=== PATIENT | male | born 1995 | race Caucasian/White ===

== ENCOUNTER 2023-02-22 01:06 | Day surgery (SDC) | payer OTHER, SELFPAY ==
[2023-02-18 16:12] VITALS: BMI 27.1
--- NOTE | 2023-02-18 16:24 | PC.NURSE ---
Report to the Outpatient Waiting Room, entrance under the green pavilion located off [facility], at time 0600 on date _02/22/23. Planned Procedure Time: 0730_. Time changes happen often and if your time is changed the preop area will call you the afternoon before. - You and your visitor will be asked to self-screen and do not enter if you have any COVID symptoms. - A mask is optional within the hospital at this time. Patients may have clear liquids (water, carbonated beverages, clear teas, apple juice) until 3 hours prior to surgery with a maximum of 20 ounces. - No food from midnight until time of surgery - Infants may have breast milk until 4 hours before surgery, infant formula 6 hours prior to surgery. - Children will be allowed to drink immediately following surgery. If applicable, please bring a bottle or sippy cup to assist with drinking. Juice, water, soda, and popsicles are readily available. For infants on formula, please bring formula the day of surgery. Pacifiers are allowed. Take the following medications with a SIP of water the morning of surgery: __n/a DO NOT STOP ANY OF YOUR OTHER PRESCRIPTION MEDICATIONS PRIOR TO SURGERY ?EXCEPT THE FOLLOWING Medications to discontinue per physician ___creatine Date to take last dose__02/19/23 Please no make-up, nail luxembourger, hairspray, perfume, deodorant, or body powder the day of surgery. No jewelry (including any body piercings) or valuables the day of surgery, leave them at home. Please take a shower or bath the night before, or the morning of, surgery with an antibacterial soap. Wear comfortable, loose fitting clothing. Children are encouraged to wear pajamas. - Jewelry must be removed prior to entering the operating room. Rings and piercings that are not removed may be cut off. - The hospital will not accept responsibility for valuables. - Please leave all valuables, including medications, at home the day of surgery. If you are going home after surgery, a licensed swing driver must drive you home. - NO public transportation without another adult if you receive anesthesia. - We recommend that an adult stay with you for 24 hours following discharge. - We also recommend that you do not drive, make important decision, drink alcoholic beverages, or take any drugs that were not prescribed by your health care provider for at least 24 hours after your discharge time. For Pediatric surgeries, we recommend two adults accompany the child home. Follow any additional instructions given to you from your surgeon. If you or anyone in your household have experienced Covid symptoms in the past week, please notify your surgeon or the nurse liaison at the phone number below for possible testing. Telephone instructions given to _Jamshid Skelton_and asked if any additional questions and then verbalized understanding. Patient advised to call surgeon office or pre surgery nurse liaison [phone] if any additional questions.
[2023-02-22 06:35] VITALS: BP 141/82; PULSE 72; RESP 16; TEMP 36.6; O2SAT 100
--- NOTE | 2023-02-22 07:06 | WPDANESEPPF ---
Anes - Initial Pre Proc Eval Procedure: Operation Date: 02/22/23 07:30 Proposed Procedures p Excision of Scalp Cyst Times Three - Janusz Guerrero MD Date/Time: 02/22/23 07:06 Surgeon: Janusz Guerrero MD Pre Op Diagnosis: Scalp Cyst Times 3 Patient Data Age: 28 Gender: M Height: 1.83 m Weight: 90.6 kg Last Vital Signs Temp 36.6 C 02/22/23 06:35 Pulse 72 02/22/23 06:35 Resp 16 02/22/23 06:35 BP 141/82 H 02/22/23 06:35 Pulse Ox 100 02/22/23 06:35 O2 Del Method Room Air 02/22/23 06:35 Allergies Allergy/AdvReac Type Severity Reaction Status Date / Time No Known Allergies Allergy Verified 02/22/23 06:18 Home Medications Medication Instructions Recorded Confirmed Type creatine monohydrate 1 ea PO DAILY 02/18/23 02/18/23 History Patient hx anesthesia problems: none Family hx anesthesia problems: none Results Review: All pre-operative results and documents have been reviewed as part of the pre-operative evaluation. [facility] Surgical History Surgical History Acetabular labrum tear surgery performed in 2014 and 2019 on L shoulder Family History Family History Other Cerebrovascular accident Social History Social History Smoking status: Never smoker Alcohol intake: current Substance use: never Living arrangements: with friend(s) Spiritual care concerns: No Anes - Eval Final PreProcedure Day of Procedure 02/22/23 07:06 Patient weight: overweight Heart: regular rate and rhythm Lungs: clear to auscultation Airway: Mallampati scale class II Neurological: alert and oriented Last oral intake: >/= 8 hours ASA classification: II Emergent: no Anesthetic plan: proceed Anesthesia type and monitoring: general LMA and standard monitoring Results Review: All pre-operative results and documents have been reviewed as part of the pre-operative evaluation. Informed Consent: The patient's anesthetic plan and its attendant risks and benefits were discussed with the patient/family/POA. Questions were solicited and answers provided to the satisfaction of the patient/family/POA.
--- NOTE | 2023-02-22 07:24 | WPDHPUPDATE1 ---
History and Physical Update Update Date/Time: 02/22/23 07:24 History and Physical has been reviewed, including an updated exam of the patient. There are NO changes in the patient's condition. Risks, benefits, and alternatives have been discussed and questions answered. Patient agrees to proceed with procedure.
[2023-02-22] MEDS: LACTATED RINGERS 1,000 ML 30 ML IV CONT (07:28)
[2023-02-22] MEDS: ceFAZolin 2 GM/D5W 50 ML 2 GM/50 ML BAG IVPB (07:32)
[2023-02-22] MEDS: BUPivacaine HCL 0.5% 10 ML AMP 20 ML INFILTRATE (08:13)
[2023-02-22] MEDS: LIDO 1%/EPINEPHRINE 1:100,000 50 ML VIAL 20 ML INFILTRATE (08:14)
[2023-02-22] MEDS: KETOROLAC 30 MG/ML VIAL (*BKC) IV PUSH (08:33)
[2023-02-22 08:40] VITALS: BP 123/95; PULSE 76; RESP 16; O2SAT 97
--- NOTE | 2023-02-22 08:58 | W.PM.PROC2 ---
Procedure Note - Detailed Date of Procedure 02/22/23 Pre-op Diagnosis Scalp Cyst Times 3 Post-op Diagnosis Same Procedure Performed Excision of scalp cyst x3, simple scalp wound closures x3. Surgeon Janusz Guerrero MD [employer] Anesthesia General Indications Patient is a 38-year-old white male who presented with complaints of slowly enlarging scalp masses. Clinical exam revealed these to be consistent with benign scalp cyst. He presents now for excision. Findings The frontal scalp cyst measured 2cm in length by 1cm in width by 0.5cm in depth. The simple closure for this incision was 3cm. The left parietal scalp cyst was 1.5cm in length by 0.5cm in width by 0.5cm in depth. Simple closure for this incision was 2cm. Posterior vertex scalp cyst was 1.5cm in length by 0.5cm in width by 0.5cm in depth. Simple closure for this incision was 2cm. Description of Procedure After informed consent was obtained patient brought to the operating room was placed supine on the operating table and then general LMA anesthesia was administered. The areas on the scalp where the cysts were located were shaved and then prepped and draped in usual sterile fashion. I then proceeded to excise out all through the scalp cysts in a similar fashion. I started out with a scalp cyst on the frontal scalp were a scalpel was used to excise the dermis and underlying tissue all the way down to the galea to include the deng of the cyst. Final excision of the ellipse of tissue was performed utilized electrocautery. Hemostasis in the incision was achieved utilized electrocautery. I then injected 0.5% Marcaine mixed with 1% lidocaine with epinephrine around the incision for local anesthetic effect and also injected some of the local anesthetic mixture and the galea. The incision was then closed in a simple single-layer fashion utilizing a running and locking 3-0 Prolene suture. The other 2 scalp cysts located on the left parietal scalp and the posterior vertex were excised out in the same fashion as described above. The measurements of the cyst and 10th of the closure of the incisions are as in the above findings. After all the incisions were then closed the area was then cleaned and then antibiotic ointment was applied to all the incisions. The patient tolerated the procedure well no complications. All sponges, needles, and instrument counts were correct at the end procedure. EBL was _20__cc. The patient was awakened and taken to recovery in stable and satisfactory condition. Implants None Estimated Blood Loss 20 Drains No Packing No Pathology Yes (Scalp cyst x3 to pathology.) Complications No immediate complications Condition Stable Disposition PACU [facility] Billing Surgery - Charge Forward: Surgery Billing
[2023-02-22 09:10] VITALS: BP 111/49; PULSE 61; RESP 14; O2SAT 100
[2023-02-22 09:40] VITALS: BP 139/77; PULSE 66; RESP 16
== END 2023-02-22 10:10 | disposition home or self-care (01) ==
PROVIDERS: PCP Emergency Medicine; Visit Provider Surgery
PROC: (CPT 11422; principal; 2023-02-22 07:30)
DX: L72.12 Trichodermal cyst (principal)
CPT/HCPCS: 11422; 11421 ×2; 88305; A9270; J0690; J1885; J2250; J2704; J3010; J7120

== ENCOUNTER 2023-09-07 10:25 | Emergency (ER) | payer OTHER, SELFPAY ==
[2023-09-07 10:35] VITALS: BP 110/66; PULSE 77; RESP 16; TEMP 36.2; O2SAT 98
--- NOTE | 2023-09-07 11:15 | ED.WOUNDLAC ---
HPI - Wound/Laceration General Chief Complaint: Wound/Laceration Stated Complaint: Cut Lip Time Seen by Provider: 09/07/23 11:15 Source: patient Mode of arrival: ambulatory Limitations: no limitations History of Present Illness HPI narrative: 28-year-old male presented for complaint of dog bite to the left upper lip resulting in the laceration through dorinda border, about an hour prior to arrival. The dog is his 5-month-old Telugu Noel puppy who is up-to-date on vaccinations. Patient is up-to-date on tetanus. No treatment prior to arrival. Related Data Home Medications Medication Instructions Recorded Confirmed No Home Medications 09/07/23 09/07/23 Allergies Allergy/AdvReac Type Severity Reaction Status Date / Time No Known Allergies Allergy Verified 09/07/23 11:45 Review of Systems Review of Systems: CONSTITUTIONAL: Denies body aches, fever, chills, or sweats. ENT: Denies rhinorrhea, congestion CARDIOVASCULAR: Denies chest pain, palpitations, or edema. RESPIRATORY: Denies cough or dyspnea. SKIN: Reports lip laceration from dog bite NEUROLOGIC: Denies headache PMFSH Surgical History Surgical History Acetabular labrum tear surgery performed in 2014 and 2019 on L shoulder History of excision of mass Excision of scalp cyst x3, simple scalp wound closures x3 on 02/22/23 SAW Family History Family History Other Cerebrovascular accident Social History Social History Smoking status: Never smoker Alcohol intake: current Substance use: never Living arrangements: with friend(s) Spiritual care concerns: No Comments At time of signature, I have reviewed and agree with nursing past medical, surgical, social and family history unless otherwise noted. Please see nursing chart for further information. There is no relevant family history pertinent to the presenting complaint Exam Narrative: GENERAL: Well-appearing ENT: Mucous membranes moist. Oropharynx without edema, erythema or lesions. NECK: Supple. No lymphadenopathy CHEST: Clear to auscultation. HEART: Regular rate and rhythm. SKIN: Warm, dry. Left upper lip laceration extending through vermilion border approx 1.5cmx0.5cm gaping. Mild swelling. Inner lip with superficial abrasions. NEURO: Alert and oriented x3. HENMT: Mouth/tongue images: 1. area of laceration Course Course Emergency Course: Patient is aware of diagnosis, understands and agrees to treatment plan. Anticipatory guidance given. Patient agrees to follow-up as directed and is aware of reasons to seek care at the emergency department. Portions of this record may have been created with voice recognition software Level of Care: Express Care Visit Vital Signs Vital signs: Vital Signs Temperature 97.2 F L 09/07/23 10:35 Pulse Rate 77 09/07/23 10:35 Respiratory Rate 16 09/07/23 10:35 Blood Pressure 110/66 09/07/23 10:35 Pulse Oximetry 98 09/07/23 10:35 Oxygen Delivery Room Air 09/07/23 10:35 Temperature 97.2 F L 09/07/23 10:35 Pulse Rate 77 09/07/23 10:35 Respiratory Rate 16 09/07/23 10:35 Blood Pressure 110/66 09/07/23 10:35 Pulse Oximetry 98 09/07/23 10:35 Oxygen Delivery Room Air 09/07/23 10:35 Reviewed Transfer Transfered to: [place] Transportation: Other (private vehicle) Transfer rationale: Pt is agreeable to transfer. Requests transfer to [facility] via private vehicle. Risks of transportation reviewed with pt including injury, worsening of condition and . v/u. will be driving pt; Report called to hospital, spoke with Suad Harrison PA-C, accepting physician. Pt is in stable condition at time of transfer. Advised to remain NPO and go directly to the hospital. MDM - Wound/Laceration MDM Narrative Medical de
== END 2023-09-07 11:23 | disposition short-term general hospital (02) ==
PROVIDERS: Emergency Provider Nurse Practitioner Family
DX: S01.511A Laceration without foreign body of lip, initial encounter (principal); W54.0XXA Bitten by dog, initial encounter
CPT/HCPCS: 99212; G0463

== ENCOUNTER 2023-09-07 11:39 | Emergency (ER) | payer OTHER, SELFPAY ==
[2023-09-07 11:40] VITALS: BP 111/69; PULSE 76; RESP 20; TEMP 36.4; O2SAT 99
--- NOTE | 2023-09-07 12:23 | ED.GENADULT ---
HPI - General Adult General Chief complaint: Wound/Laceration Stated complaint: dog scratch to upper lip Time Seen by Provider: 09/07/23 11:56 History of Present Illness HPI narrative: 28-year-old male presenting to the emergency department for evaluation for a dog bite to the left side of his upper lip. Patient states this was his 5-month-old Mexican Noel that bit him in the face. Patient reported he was blowing in the dog's face. patient denies any other pain or injury. Patient's tetanus is up-to-date. Related Data Allergies Allergy/AdvReac Type Severity Reaction Status Date / Time No Known Allergies Allergy Verified 09/07/23 11:45 Review of Systems Review of Systems: All systems reviewed & are unremarkable except as noted in HPI and below PMFSH Surgical History Surgical History Acetabular labrum tear surgery performed in 2014 and 2019 on L shoulder History of excision of mass Excision of scalp cyst x3, simple scalp wound closures x3 on 02/22/23 SAW Family History Family History Other Cerebrovascular accident Social History Social History Smoking status: Never smoker Alcohol intake: current Substance use: never Living arrangements: with friend(s) Spiritual care concerns: No Exam Narrative: APPEARANCE: Well appearing, no pain, no distress, well-nourished. HEAD: normocephalic, lip laceration. EYES: PERRLA/EOMI, conjunctivae clear. NOSE: Normal no drainage EARS:TMS clear with good light reflex. THROAT: Pharynx clear, no exudate. NECK: Supple. No adenopathy, no masses. RESPIRATORY: Airway patent, respirations nonlabored. Clear to auscultation bilaterally, no rales, rhonchi, wheezing. CARDIOVASCULAR: Regular rate and rhythm without murmurs rubs or gallops. ABDOMINAL: Soft, nontender, nondistended, normal bowel sounds MUSCULOSKELETAL: Moves all extremities. Strength/ROM intact, No edema, No calf tenderness. NEURO: Alert. Cranial nerves II through XII intact. Good gait. Good coordination SKIN: Laceration to left upper lip PSYCHIATRIC: Normal affect/mood. Course Course Emergency Course: Patient was discharged home with antibiotics and wound care instruction Vital Signs Vital signs: Vital Signs Temperature 97.6 F 09/07/23 11:40 Pulse Rate 76 09/07/23 11:40 Respiratory Rate 20 09/07/23 11:40 Blood Pressure 111/69 09/07/23 11:40 Pulse Oximetry 99 09/07/23 11:40 Oxygen Delivery Room Air 09/07/23 11:40 Temperature 97.6 F 09/07/23 11:40 Pulse Rate 76 09/07/23 11:40 Respiratory Rate 20 09/07/23 11:40 Blood Pressure 111/69 09/07/23 11:40 Pulse Oximetry 99 09/07/23 11:40 Oxygen Delivery Room Air 09/07/23 11:40 Procedures Laceration Laceration 1: Site: lip Side (If applicable): left Size (cm): 3 Description: linear and irregular Depth: simple, single layer Local Anesthetic: lidocaine 1% Amount of anesthesia used (mL): 2 Pre-repair: wound explored, irrigated and irrigated extensively ====== Skin Level ====== Skin layer closed with: nylon Size (cm): 6-0 Number of sutures: 4 Technique: simple, interrupted ====== Subcutaneous Layer ====== Subcutaneous layer closed with: chromic gut Size: 5-0 Number of sutures: 1 Technique: simple, interrupted ====== Muscle Layer ====== ====== Tendon Layer ====== Medical Decision Making MDM Narrative Medical decision making narrative: 28-year-old male presenting to the ED for evaluation of a facial laceration. Laceration was repaired as described above. Patient's tetanus was updated. Patient was started on antibiotics for home. Vital Signs Vital Signs: Vital Signs Temperature 97.6 F 09/07/23 11:40 P
[2023-09-07] MEDS: AMOXICILLIN/CLAVULANATE K 875-125 MG TAB 1 TABLET PO (13:22)
== END 2023-09-07 13:58 | disposition home or self-care (01) ==
PROVIDERS: Emergency Provider Emergency Medicine; Referring Provider Emergency Medicine
DX: S01.551A Open bite of lip, initial encounter (principal); W54.0XXA Bitten by dog, initial encounter
CPT/HCPCS: 12052; 99283; A9270

== ENCOUNTER 2024-04-26 13:07 | Emergency (ER) | payer OTHER, SELFPAY ==
--- NOTE | ~2024-04-26 | XR_ITS ---
XR chest 2V Ordering provider: Lala Barrios APRN History: 29 years Male with . cough fatigue x 3 days . Comparison: None. FINDINGS: MEDIASTINUM: The cardiac silhouette is not enlarged. LUNGS: No infiltrates, effusions or pneumothorax. OTHER: No free air under the diaphragm. IMPRESSION: No acute cardiopulmonary pathology. Reviewed, dictated and finalized at location A. [facility] SPECIALIST
--- NOTE | 2024-04-26 13:16 | ED.URI ---
HPI - URI/Sore Throat General Chief Complaint: Upper Respiratory Infection Stated Complaint: cold/flu symptoms Time Seen by Provider: 04/26/24 13:20 History of Present Illness HPI Narrative: 29 y/o male presented for c/o cough, fatigue, nasal congestion, subjective fever and sore throat. Onset 4 days. Endorses exposure to pneumonia. States today he could only tolerate 30 minutes at the gym which is abnormal for him. He denies shortness breath, wheezing nausea, vomiting, diarrhea. Not taking anything for symptoms. Related Data Allergies Allergy/AdvReac Type Severity Reaction Status Date / Time No Known Allergies Allergy Verified 04/26/24 13:19 Review of Systems Review of Systems: ROS per HPI [facility] Surgical History Surgical History Acetabular labrum tear surgery performed in 2014 and 2019 on L shoulder History of excision of mass Excision of scalp cyst x3, simple scalp wound closures x3 on 02/22/23 SAW Family History Family History Other Cerebrovascular accident Social History Social History Smoking status: Never smoker Alcohol intake: current Substance use: never Living arrangements: with friend(s) Spiritual care concerns: No Exam Narrative: GENERAL: mildly Ill-appearing, no acute distress. EYES: conjunctivae clear ENT: Mucous membranes moist. TM pearly patel with normal light reflex bilaterally; no tragal tenderness. Oropharynx erythematous without lesions. Tonsils enlarged and without exudate. No drooling, no hoarseness, no trismus, uvula midline. No tripod positioning, hot potato voice, or soft palate swelling. NECK: Supple. No lymphadenopathy CHEST: Clear to auscultation, breath sounds equal. No respiratory distress, speaks in full sentences. HEART: Regular rate and rhythm. No murmur heard. SKIN: Warm, dry, no rash. NEURO: Alert and oriented x3. Course Course Emergency Course: Patient is aware of diagnosis, understands and agrees to treatment plan. Anticipatory guidance given. Patient agrees to follow-up as directed and is aware of reasons to seek care at the emergency department. Portions of this record may have been created with voice recognition software Level of Care: Express Care Visit Vital Signs Vital signs: Vital Signs Oxygen Delivery Room Air 04/26/24 13:15 Temperature 98.6 F 04/26/24 13:19 Pulse Rate 85 04/26/24 13:19 Respiratory Rate 16 04/26/24 13:19 Blood Pressure 120/68 04/26/24 13:19 Pulse Oximetry 98 04/26/24 13:19 Oxygen Delivery Room Air 04/26/24 13:15 MDM - URI/Sore Throat MDM Narrative Medical decision making narrative: Neg strep result and CXR reviewed with pt. Advise supportive treatments and s/s to go to the ER. Patient is appropriate for outpatient treatment and follow-up. Differential Diagnosis Differential diagnosis: Likely upper respiratory infection, viral infection and pharyngitis Lab Data Labs: Lab Results 04/26/24 Range/Units 13:20 POC Grp A Strep Screen Negative (Negative) Imaging Data Radiologist's impression: Patient: Jamshid Skelton : 1995 MR#: [id number] Age: 29 Acct:[id number] Loc: [id number] ADM Date: 04/26/24Attending Dr: Ordering Physician: Lala Barrios APRN Date of Service: 04/26/24 Procedure(s): XR chest 2V Accession Number(s): [id number] cc: Lala Barrios APRN; EXPLOSIVES WORKER PHYSICIAN~ XR chest 2V Ordering provider: Lala Barrios APRN History: 29 years Male with . cough fatigue x 3 days . Comparison: None. FINDINGS: MEDIASTINUM: The cardiac silhouette is not enlarged. LUNGS: No infiltrates, effusions or pneumothorax. OTHER: No free air under the diaphragm. IMPRESSION: No acute cardiopulmonary pathology. Discharge Plan Discharge Clinical Impression: Upper respiratory infection Patient Disposition: Home, Self-Care Condition: Stable Instructions: Antibiotic Form, Upper Respiratory Infection (ED) Additional Instructions: Rapid strep swab was negative today You will be notified in a few days if the culture comes back positive for strep, and appropriate antibiotics will be called in at that time. if symptoms are due to a viral illness, it is not treated with antibiotics. Viral symptoms can be present for up to 10-14 days. Recommendations: Flonase spray and Zyrtec for sinus congestion Cough syrup may cause drowsiness; avoid driving or take it at night time. Tylenol every 8 hours as needed for pain/fever Soft foods, cool liquids, warm tea. Gargle with warm saltwater twice a day. Chloraseptic spray and throat lozenges. Rest and stay hydrated. --Follow up with your PCP --Go to the ER immediately if you cannot swallow your saliva, trouble breathing/wheezing, throat swelling, pain is persistent and severe Prescriptions: New benzonatate 200 mg capsule 200 mg PO TID PRN (Reason: cough) Qty: 20 0RF methylprednisolone [Medrol (Renard)] 4 mg tablets,dose pack See Rx Instructions .ROUTE .COMPLEX Qty: 21 0RF Rx Instructions: orally per package directions No Action amoxicillin-pot clavulanate 875-125 mg tablet 1 tablet PO Q12H Qty: 14 0RF Follow-up/Referrals: PHYSICIAN,EXPLOSIVES WORKER [Primary Care Provider] - Time of Disposition: 13:40
[2024-04-26 13:18] VITALS: BP 120/68; PULSE 85; RESP 16; TEMP 37; O2SAT 98
[2024-04-26 13:19] VITALS: BP 120/68; PULSE 85; RESP 16; TEMP 37; O2SAT 98
[2024-04-26 13:28] LABS: EDSTREPNEGPOS1 Negative (Negative)
== END 2024-04-26 13:42 | disposition home or self-care (01) ==
PROVIDERS: Emergency Provider Nurse Practitioner Family
DX: J06.9 Acute upper respiratory infection, unspecified (principal)
CPT/HCPCS: 71046; 87081; 87880; 99213; G0463